=== PATIENT | male | born 1985 | race Two or more races ===

== ENCOUNTER 2024-12-20 22:18 | Inpatient (IN) ==
[2024-12-20 23:18] LABS: Basophils # (auto) 0.03 K/uL (0.00-0.20); Basophils % (auto) 0.3 %; Eosinophils # (auto) 0.03 K/uL (0.00-0.50); Eosinophils % (auto) 0.3 %; Hemoglobin 15.8 g/dl (14.0-18.0); Immature Granulocytes # (auto) 0.02 K/uL (0.01-0.20); Immature Granulocytes % (auto) 0.2 %; Lymphocytes # (auto) 2.05 K/uL (1.20-3.40); Lymphocytes % (auto) 22.2 %; Mean Corpuscular Hemoglobin 30.3 pg (25.0-34.0); Mean Corpuscular Hgb Conc 35.1 g/dL (32.0-36.0); Mean Corpuscular Volume 86.4 fL (80.0-100.0); Mean Platelet Volume 10.2 fL (9.4-12.4); Monocytes # (auto) 0.81 K/uL (0.11-0.59); Monocytes % (auto) 8.8 %; Neutrophils # (auto) 6.29 K/uL (1.40-6.50); Neutrophils % (auto) 68.2 %; Platelet Count 306 K/uL (130-400); RDW Standard Deviation 40.4 fL (36.4-46.3); Red Blood Count 5.21 M/uL (4.70-6.10); White Blood Count 9.23 K/ul (4.8-10.8)
[2024-12-20 23:36] LABS: Albumin Globulin Ratio 1.3 (0.9-2); BUN Creatinine Ratio 12.8 (10-20); Bilirubin,Total 1.5 mg/dl (0.2-1.0); Calcium 9.8 mg/dl (8.6-10.3); Creatinine Clr Calc Pharmacy 54.2 ml/min; Globulin 3.6 gm/dl (2.5-4.0); Magnesium 2.2 mg/dl (1.7-2.4); Potassium 3.1 mmol/L (3.5-5.1); Total Protein 8.4 gm/dl (6.0-8.3)
[2024-12-20 23:42] LABS: Troponin I High Sensitivity 28.5 pg/ml (0-20)
[2024-12-20] MEDS: SODIUM CHLORIDE 0.9% 1,000 ML IV ONE (23:43)
[2024-12-20 23:51] LABS: Thyroid Stimulating Hormone 1.217 uIu/ml (0.300-4.500)
[2024-12-21] MEDS: SODIUM CHLORIDE 0.9% 1,000 ML IV ONE (00:44)
--- NOTE | 2024-12-21 00:44 | Emergency Department Note ---
Impression & Plan Dehydration, Abnormal LFTs, ROSI (acute kidney injury), Substance abuse, Rhabdomyolysis ED Provider Note ED Provider Note NAME: GOLDEN FLORES AGE:39 SEX: Male : 1985 ARRIVES VIA: EMS INFORMANT: Patient, police ED PROVIDER(s): Jayda Henao DO CHIEF COMPLAINT: Agitation, abnormal behavior, altercation with PD HPI: This is a 39-year-old male brought in by police after behaving abnormally resulting in an altercation. PD reports patient walked across [facility] and slapped the police car started them and then sat down on the sidewalk. He seemed to be sweating profusely and would not respond when they asked if they could help him. After several attempts to converse with the patient they then went to place their hands on him and he became agitated and combative. It took several officers to place him in handcuffs. Patient calm and cooperative by arrival here. History obtained with use of iPad block sawyer with nursing and security staff present. Patient states he was thinking about his family and then does not know what happened. He denies any medical problems, medications, or allergies. He denies any use of smoking, alcohol, or recreational drugs. He does admit to taking something several days ago he says but he states that he does not know what it was. 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 He states these are normal and not new. He states he has no new pain or problems. PAST MEDICAL HISTORY:See Below PAST SURGICAL HISTORY:See Below FAMILY HISTORY:See Below SOCIAL HISTORY:See Below HOME MEDICATIONS:See Below ALLERGIES:See Below VITALS:See Below PHYSICAL EXAMINATION: GENERAL: alert, well appearing, well nourished, no distress, non-toxic HEAD: nc/at EYE EXAM: normal conjunctiva, PERRL and EOM's grossly intact OROPHARYNX: no exudate, no erythema, lips, buccal mucosa, and tongue normal and mucous membranes are dry NECK: supple, no nuchal rigidity, no adenopathy, non-tender, FROM LUNGS: Clear to auscultation. Normal chest wall mechanics, no w/r/r HEART: no murmurs, S1 normal and S2 normal ABDOMEN: abdomen soft, non-tender, normo-active bowel sounds, no masses, no rebound or guarding. SKIN: no rashes, petechiae, orbruising UPPER EXTREMITIES: upper extremities are grossly normal. FROM, nml pulses b/l. Handcuffs present. No obvious trauma or deformities. LOWER EXTREMITIES: No pitting edema. FROM, nml pulses b/l. Multiple superficial lacerations noted to bilateral lower extremities, no bleeding, no gaping wounds, nontender with palpation. No deformities or more concerning trauma. NEURO EXAM: Normal sensorium, cranial nerves II-XII grossly intact, normal speech, no facial droop,nogross weakness of arms, no gross weakness of legs. Gross sensation intact. No ataxia. Vital Signs: reviewed and remarkable Differential Diagnosis: Alcohol intoxication, recreational drug use, toxidrome, ROSI, dehydration, ICH, viral syndrome, medication ADR, CVA, dysrhythmia, as well as others were considered MEDICAL DECISION MAKING: This is a 39-year-old male brought in by EMS with police accompanying after an episode of agitation and bizarre behavior noted by police which resulted in an altercation with police. Patient noted to be tachycardic and mildly hypertensive on arrival however otherwise hemodynamically stable. He was calm and cooperative for myself and staff here. All interactions utilized the [employer] Guine[place] translators. Labs drawn and sent, IV established, EKG and chest ray performed at bedside and interpreted by me and patient monitored on telemetry. He was given IV fluids. Patient noted to have ROSI and abnormal LFTs. He denied abdominal pain or any prior similar episodes. A CK was added and noted to be significantly elevated. Patient was given 2 L of IV fluids and repeat labs drawn and sent by the time the CK resulted. Case discussed with the hospitalist team due to concern for rhabdomyolysis, need for continued IV fluids, and concern for initial kidney and liver injury noted. Repeat creatinine and LFTs were improving although LFTs not yet returned to normal. Patient verbalized understanding of all results as discussed via the [employer] flexo operator service. Patient's urine drug screen ultimately positive for methamphetamines. Troponin also noted to be elevated although I feel this is likely secondary to the rhabdo and ROSI. I do not suspect primary ACS, PE, or dissection. Consultation(s): 0228: Discussed with Dr. Dumont, [facility] hospitalist team, for additional evaluation and management. ER Treatment Provided: See below 2310: Patient updated on lab abnormalities via iPad flexo operator with nurse, Yamel, present. He states he is never had any kidney or liver problems before. He has previously had imaging of them and was told they were okay. He states he does not drink a lot of water, maybe some during the day as well as soda. Diagnostics Interpreted By Me: -ECG: Sinus tachycardia at 116, normal axis, normal intervals, no acute ST/T wave changes -Cardiac Monitoring: An order was placed for continuous cardiac monitoring. The monitor shows a rate of 108 with sinus tachycardia rhythm. -Laboratory studies: As stated above and show below. -Imaging studies: X-ray Chest: A single view study of the chest was reviewed and was negative for cardiomegaly, focal infiltrate, effusion, pulmonary edema, or wide mediastinum. Triage Nursing Note Reviewed Prior/Outside Records Reviewed Past Med/Surg History Problem List (Updated 12/22/24 @ 02:11 by Jayda Henao DO) Rhabdomyolysis (Acute) Substance abuse (Acute) Elevated troponin Rhabdomyolysis ROSI (acute kidney injury) (Acute) Abnormal LFTs (Acute) Dehydration (Acute) Social History Smoking Status: Never smoker Second Hand Exposure: No; Do You Dip or Chew Tobacco: No; Tobacco Cessation Education Requested by Patient: No Hx Alcohol Use: No Hx Substance Use: Yes Last Used Substance: Just Prior to Arrival Preferred Language: Guinean Communication Ability: Effective Communication Tools: IPad and Language Line Circular Sawyer Helper Circular Sawyer Helper Required: No Beliefs That Will Affect Care: None Current Living Situation: Alone Other Information That Helps Us Care for You: No Feels Safe at Home: Yes Safety Concerns: Feels Safe At This Time Assistive Devices: None Allergies Allergies Allergy/AdvReac Type Severity Reaction Status Date / Time No Known Allergies Allergy Verified 12/21/24 00:31 Home Meds Home Medications Medication Instructions Recorded Confirmed No Known Home Medications 12/21/24 12/21/24 Results & Data (ED) Vital Signs Vital Signs - 24 hr 12/21/24 02:13 12/21/24 02:48 12/21/24 03:00 Temperature 37.3 C Temperature Source Oral Pulse Rate 111 H Pulse Rate [Apical] 87 69 Respiratory Rate 20 19 Respiratory Effort / Characteristics Non-Labored Spontaneous Non-Labored Spontaneous Respiratory Pattern Regular Regular Blood Pressure [Right Arm] 146/91 H 142/97 H Blood Pressure Mean [Right Arm] 109 112 Blood Pressure Position [Right Arm] Lying Lying Pulse Oximetry 97 96 Oxygen Delivery Method Room Air Room Air Laboratory Data 12/21/24 06:52 12/21/24 06:52 Lab Results 12/20/24 12/21/24 12/21/24 Range/Units 22:51 01:30 01:36 WBC 9.23 (4.8-10.8) K/ul RBC 5.21 (4.70-6.10) M/uL Hgb 15.8 (14.0-18.0) g/dl Hct 45.0 (42.0-52.0) % MCV 86.4 (80.0-100.0) fL MCH 30.3 (25.0-34.0) pg MCHC 35.1 (32.0-36.0) g/dL RDW Std Deviation 40.4 (36.4-46.3) fL RDW Coeff of Eladio 13.0 (11.5-14.5) % Plt Count 306 (130-400) K/uL MPV 10.2 (9.4-12.4) fL Immature Gran % (Auto) 0.2 % Neut % (Auto) 68.2 % Lymph % (Auto) 22.2 % Lea % (Auto) 8.8 % Eos % (Auto) 0.3 % Baso % (Auto) 0.3 % Neut # (Auto) 6.29 (1.40-6.50) K/uL Lymph # (Auto) 2.05 (1.20-3.40) K/uL [place] # (Auto) 0.81 H (0.11-0.59) K/uL Eos # (Auto) 0.03 (0.00-0.50) K/uL Baso # (Auto) 0.03 (0.00-0.20) K/uL Immature Gran # (Auto) 0.02 (0.01-0.20) K/uL Sodium 139 140 (136-145) mmol/L Potassium 3.1 L 3.6 (3.5-5.1) mmol/L Chloride 103 109 H (98-107) mmol/L Carbon Dioxide 21 22 (21-32) mmol/L Anion Gap 15 H 9 (3-11) BUN 24 H 22 (6-23) mg/dl Creatinine 1.88 H 1.37 D (0.6-1.4) mg/dl Est Cr Clr Drug Dosing 54.2 74.4 ml/min eGFR 45.46 66.46 BUN/Creatinine Ratio 12.8 16.1 (10-20) Glucose 141 H 113 H (70-99(Fasting)) mg/dl Calcium 9.8 8.4 L (8.6-10.3) mg/dl Magnesium 2.2 (1.7-2.4) mg/dl Total Bilirubin 1.5 H 1.4 H (0.2-1.0) mg/dl AST 201 H 180 H (13-39) U/L ALT 111 H 95 H (7-52) U/L Alkaline Phosphatase 114 H 96 (34-104) U/L Total Creatine Kinase 23518 H (30-223) U/L Troponin I High Sens 28.5 H 32.8 H (0-20) pg/ml Total Protein 8.4 H 7.0 (6.0-8.3) gm/dl Albumin 4.8 3.8 (3.4-5.0) gm/dl Globulin 3.6 3.2 (2.5-4.0) gm/dl Albumin/Globulin Ratio 1.3 1.2 (0.9-2) Lipase 25 (11-82) U/L TSH 1.217 (0.300-4.500) uIu/ml Urine Color Yellow Urine Appearance Cloudy A (Clear) Urine pH 5.5 (4.5-7.5) Ur Specific [place] 1.025 (1.000-1.030) Urine Protein 2+ H (Negative) Urine Glucose (UA) Negative (Negative) Urine Ketones Trace H (Negative) Urine Blood 3+ H (Negative) Urine Nitrite Negative (Negative) Urine Bilirubin Negative (Negative) Urine Urobilinogen Negative (Negative) Ur Leukocyte Esterase Negative (Negative) Urine WBC (Auto) 0-5 (0-5) /hpf Urine RBC (Auto) 0-2 (0-2) /hpf U Hyaline Cast (Auto) >20 H (0-2) /lpf U Epithel Cells (Auto) 0-2 (0-2) /hpf Urine Bacteria (Auto) None Seen (None Seen) Urine Comment Urine Opiates Screen Neg (Neg) Ur Methadone, Qual Neg (Neg) Urine Fentanyl Screen Neg (Neg) Urine Barbiturates Neg (Neg) Ur Phencyclidine (PCP) Neg (Neg) U Amphetamin/Meth Scrn Pos H (Neg) MDMA (Ecstasy) Screen Neg (Neg) U Benzodiazepines Scrn Neg (Neg) Ur Cocaine Metabolite Neg (Neg) U Marijuana (THC) Screen Neg (Neg) Ethyl Alcohol mg/dL < 10.0 (<10.0) mg/dl Administered Medications Sodium Chloride (Nss) 1,000 mls @ 225 mls/hr IV .Q4H27M ENOC Stop: 12/24/24 02:44 Last Admin: 12/21/24 21:43 Dose: 225 mls/hr Documented By: Infusion: 12/21/24 21:40 Dose: Infused Documented By: Admin: 12/21/24 17:13 Dose: 225 mls/hr Documented By: Infusion: 12/21/24 16:47 Dose: Infused Documented By: Admin: 12/21/24 10:06 Dose: 150 mls/hr Documented By: Infusion: 12/21/24 09:26 Dose: Infused Documented By: Admin: 12/21/24 02:45 Dose: 150 mls/hr Documented By: RACHAEL Discontinued Medications Sodium Chloride (Nss) 1,000 mls @ 999 mls/hr IV .Q1H1M ONE Stop: 12/21/24 00:43 Last Infusion: 12/21/24 00:45 Dose: Infused Documented By: Admin: 12/20/24 23:43 Dose: 999 mls/hr Documented By: RACHAEL Sodium Chloride (Nss) 1,000 mls @ 999 mls/hr IV .Q1H1M ONE Stop: 12/21/24 01:36 Last Infusion: 12/21/24 02:00 Dose: Infused Documented By: Admin: 12/21/24 00:44 Dose: 999 mls/hr Documented By: RACHAEL Imaging Data Radiologist's Impression: Chest X-Ray 12/20/24 22:49 EXAM: XR chest 1V portable CLINICAL HISTORY: Agitation. TECHNIQUE: An X-ray image of the chest is obtained in PA projection. COMPARISON: No prior studies are available for comparison. FINDINGS: Pulmonary Parenchyma: Lungs are clear bilaterally. No evidence of consolidation, collapse, or focal opacities. No pulmonary nodules are identified. No evidence of pleural effusion or pleural thickening. Heart and Mediastinum: Heart size and shape are normal. No mediastinal widening or masses. No hilar or mediastinal lymphadenopathy. Bony Thorax: Bony thorax appears intact without fractures or deformities. Soft Tissues: Soft tissues overlying the chest wall are unremarkable. IMPRESSION: 1. No acute cardiopulmonary abnormalities are identified. 2. No evidence of consolidation, pneumothorax, or pleural effusion. Electronically signed by Marcelo Cardenas 12-21-2024 01:19 AM Discharge Plan Visit Data Chief Complaint: Altered Mental Status Stated Complaint: AMS ED Provider: Jayda Henao Discharge Problem: Dehydration, Abnormal LFTs, ROSI (acute kidney injury), Substance abuse, Rhabdomyolysis Patient Disposition: Admitted As Inpatient Condition: Fair Discharge Instructions Interventions: ED Discharge Assessment Last Done: 12/21/24 06:15
[2024-12-21 02:00] LABS: Albumin Globulin Ratio 1.2 (0.9-2); BUN Creatinine Ratio 16.1 (10-20); Bilirubin,Total 1.4 mg/dl (0.2-1.0); Calcium 8.4 mg/dl (8.6-10.3); Creatinine Clr Calc Pharmacy 74.4 ml/min; Globulin 3.2 gm/dl (2.5-4.0); Potassium 3.6 mmol/L (3.5-5.1)
[2024-12-21 02:03] LABS: Appearance Urine Cloudy (Clear); Bacteria Urine Automated None Seen (None Seen); Bilirubin Urine Negative (Negative); Blood Urine 3+ (Negative); Cast Urine Automated >20 /lpf (0-2); Color Urine Yellow; Epithelial Cell Urine Auto 0-2 /hpf (0-2); Glucose Urine UA Negative (Negative); Ketones Urine Trace (Negative); Leukocyte Esterase Urine Negative (Negative); Nitrite Urine Negative (Negative); Protein Urine 2+ (Negative); RBC Urine Automated 0-2 /hpf (0-2); Specific Gravity Urine 1.025 (1.000-1.030); Urobilinogen Urine Negative (Negative); WBC Urine Automated 0-5 /hpf (0-5); pH Urine 5.5 (4.5-7.5)
[2024-12-21 02:06] LABS: Troponin I High Sensitivity 32.8 pg/ml (0-20)
--- NOTE | 2024-12-21 02:32 | XRay Report ---
EXAM: XR chest 1V portable CLINICAL HISTORY: Agitation. TECHNIQUE: An X-ray image of the chest is obtained in PA projection. COMPARISON: No prior studies are available for comparison. FINDINGS: Pulmonary Parenchyma: Lungs are clear bilaterally. No evidence of consolidation, collapse, or focal opacities. No pulmonary nodules are identified. No evidence of pleural effusion or pleural thickening. Heart and Mediastinum: Heart size and shape are normal. No mediastinal widening or masses. No hilar or mediastinal lymphadenopathy. Bony Thorax: Bony thorax appears intact without fractures or deformities. Soft Tissues: Soft tissues overlying the chest wall are unremarkable. IMPRESSION: 1. No acute cardiopulmonary abnormalities are identified. 2. No evidence of consolidation, pneumothorax, or pleural effusion. Electronically signed by Marcelo Cardenas 12-21-2024 01:19 AM
[2024-12-21] MEDS: SODIUM CHLORIDE 0.9% 1,000 ML IV SCH (02:45)
[2024-12-21 02:56] LABS: Amphetamines+Metham, Urine Pos (Neg); Barbiturates, Urine Neg (Neg); Benzodiazepine, Urine Neg (Neg); Cocaine, Urine Neg (Neg); Fentanyl, Urine Neg (Neg); MDMA (Ecstacy), Urine Neg (Neg); Marijuana, Urine Neg (Neg); Methadone, Urine Neg (Neg); Opiate, Urine Neg (Neg); Phencyclidine, Urine Neg (Neg)
--- NOTE | 2024-12-21 03:12 | History & Physical Report ---
Date of Service December 21, 2024 Assessment & Plan (1) Rhabdomyolysis: (2) Elevated troponin: Plan 39-year-old male with documented PMHx presenting after episode of agitation, slurred speech, diaphoresis as witnessed by [facility] night of arrival. Reported to have walked up to an active traffic stop to police officers, unprovoked. At the time he had placed his hands down on out of the car and became agitated. ED evaluation reveals no leukocytosis, stable H&H; CMP chloride 109, glucose 113, calcium 8.4, bilirubin 1.4, AST 180, ALT 95, alkaline phosphatase 96; total CK 20,297; troponin 28.5, 32.8 on repeat; TSH 1.217; UA with 3+ blood, hyaline cast, protein; toxicology positive for amphetamine/meth; alcohol negative; CXR without acute findings; EKG sinus tachycardia at 116 bpm.; Provided with 3L NSS in ED. #Rhabdomyolysis Agitation + AMS as reported by police. Denies drug or alcohol use. Received 3L NSS in ED. - CBC without leukocytosis; CMP x 2 (initial vs repeat) Cr 1.88 -> 1.37; K 3.1 - > 3.6; bili 1.5 -> 1.4, AST 201-> 180, ALT 111-> 95, alk phos 114-> 96 - CBC, CMP, CK a.m. - Trop 28.5, 32.8 on repeat; EKG sinus tachycardia without ischemic changes - CXR WNL - UDS (+) amphetamine/meth, alcohol negative - Continue IVF -- NSS @ 150 mL/hr #Elevated troponin No current chest pain. In setting of rhabdomyolysis - Troponin 28.5, 32.8 on repeat- repeat am - EKG sinus tachycardia without ischemic changes - Likely 2/2 demand ischemia Dispo: Admit, med/tele VTE Prophylaxis: SCDs This document was dictated utilizing [employer]. Please excuse any grammatical errors that may be secondary to use of this software. Admission and Anticipated Discharge Date Admission Date: 12/21/2024 History of Present Illness Chief Complaint: Agitation, AMS Primary Care Provider: NO PCP 39-year-old male with documented PMHx presenting after episode of agitation, slurred speech, diaphoresis as witnessed by [facility] night of arrival. Reported to have walked up to an active traffic stop to police officers, unprovoked. At the time he had placed his hands down on out of the car and became agitated. An interpretation service was utilized for this meeting. When asked what happened the day [employer] the patient states "I do not know, I was remembering my family I do not know." He states at 1 point he had some SOB and then had a "strong feeling". He is denying any chest pain, just feels that he has some lower rib pain that is related to his nerves. He has no past medical history, surgical history, or family history to report. No allergies. He does admit to alcohol use "sometimes", states that he does not take drugs, but that he might of taken something a few days ago, does not member what it is. He is having some BLE tenderness in his lateral thighs, no other symptoms to report. ED evaluation reveals no leukocytosis, stable H&H; CMP chloride 109, glucose 113, calcium 8.4, bilirubin 1.4, AST 180, ALT 95, alkaline phosphatase 96; total CK 20,297; troponin 28.5, 32.8 on repeat; TSH 1.217; UA with 3+ blood, hyaline cast, protein; toxicology positive for amphetamine/meth; alcohol negative; CXR without acute findings; EKG sinus tachycardia at 116 bpm.; Provided with 3L NSS in ED. Please see Dr. Dumont's attestation for adjustments/additions to treatment plan. Allergies Allergy/AdvReac Type Severity Reaction Status Date / Time No Known Allergies Allergy Verified 12/21/24 00:31 Home Medications Medication Instructions Recorded Confirmed Type No Known Home Medications 12/21/24 12/21/24 History Past Med/Surg History Problem List (Updated 12/22/24 @ 02:11 by Jayda Henao, ) Rhabdomyolysis (Acute) Substance abuse (Acute) Elevated troponin Rhabdomyolysis ROSI (acute kidney injury) (Acute) Abnormal LFTs (Acute) Dehydration (Acute) Social History Smoking Status: Never smoker Second Hand Exposure: No; Do You Dip or Chew Tobacco: No; Tobacco Cessation Education Requested by Patient: No Hx Alcohol Use: No Hx Substance Use: Yes Last Used Substance: Just Prior to Arrival Preferred Language: Vietnamese Communication Ability: Effective Communication Tools: IPad and Language Line Nuclear Process Engineer Nuclear Process Engineer Required: No Beliefs That Will Affect Care: None Current Living Situation: Alone Other Information That Helps Us Care for You: No Feels Safe at Home: Yes Safety Concerns: Feels Safe At This Time Assistive Devices: None Review of Systems Review of Systems: All systems reviewed & are unremarkable except as noted in Subjective Physical Exam Physical Exam: General: No acute distress Skin: Warm and dry; excoriations across BLE Head: Normocephalic, atraumatic Eyes: PERRL, conjunctivae clear, sclera non-icteric ENT: External ear and ear canal without swelling; nose atraumatic; good dentition, tongue normal appearance, pharynx normal Neck: Supple, no LAD Cardio: RRR, no M/G/R, S1 and S2 normal Resp: No respiratory distress, Lungs CTA in all lobes bilaterally, no wheezes, rales, or rhonchi Abdomen: Soft, symmetric, nontender; No masses or hepatosplenomegaly; Bowel sounds normoactive MSK: No deformities; pulses palpable and equal; no edema. Neuro: Awake, alert; Sensation intact bilaterally; CN grossly intact Psych: Appropriate mood and affect; good judgement and insight. Interpretation services utilized via iPad in room. Dr. Dumont present in room at time of visit. Results & Data Results & Data Vital Signs (Past 12 Hours) Vital Signs Temp Pulse Pulse Resp BP BP Pulse Ox 12/21/24 02:48 111 H 12/21/24 02:13 37.3 C 87 20 146/91 H 97 12/21/24 01:00 84 22 131/86 100 12/21/24 00:01 92 H 22 145/86 H 97 12/20/24 23:00 118 H 24 149/102 H 96 12/20/24 22:53 116 H 12/20/24 22:14 96 12/20/24 22:14 37.4 C 120 H 16 162/105 H 94 O2 Del Method 12/21/24 02:48 12/21/24 02:13 Room Air 12/21/24 01:00 Room Air 12/21/24 00:01 Room Air 12/20/24 23:00 Room Air 12/20/24 22:53 12/20/24 22:14 Room Air 12/20/24 22:14 Room Air Laboratory Results 12/21/24 12/21/24 12/20/24 01:36 01:30 22:51 WBC 9.23 RBC 5.21 Hgb 15.8 Hct 45.0 MCV 86.4 MCH 30.3 MCHC 35.1 RDW Std Deviation 40.4 RDW Coeff of Eladio 13.0 Plt Count 306 MPV 10.2 Immature Gran % (Auto) 0.2 Neut % (Auto) 68.2 Lymph % (Auto) 22.2 [place] % (Auto) 8.8 Eos % (Auto) 0.3 Baso % (Auto) 0.3 Neut # (Auto) 6.29 Lymph # (Auto) 2.05 [place] # (Auto) 0.81 H Eos # (Auto) 0.03 Baso # (Auto) 0.03 Immature Gran # (Auto) 0.02 Sodium 140 139 Potassium 3.6 3.1 L Chloride 109 H 103 Carbon Dioxide 22 21 Anion Gap 9 15 H BUN 22 24 H Creatinine 1.37 D 1.88 H Est Cr Clr Drug Dosing 74.4 54.2 eGFR 66.46 45.46 BUN/Creatinine Ratio 16.1 12.8 Glucose 113 H 141 H Calcium 8.4 L 9.8 Magnesium 2.2 Total Bilirubin 1.4 H 1.5 H AST 180 H 201 H ALT 95 H 111 H Alkaline Phosphatase 96 114 H Total Creatine Kinase 26287 H Troponin I High Sens 32.8 H 28.5 H Total Protein 7.0 8.4 H Albumin 3.8 4.8 Globulin 3.2 3.6 Albumin/Globulin Ratio 1.2 1.3 Lipase 25 TSH 1.217 Urine Color Yellow Urine Appearance Cloudy A Urine pH 5.5 Ur Specific [place] 1.025 Urine Protein 2+ H Urine Glucose (UA) Negative Urine Ketones Trace H Urine Blood 3+ H Urine Nitrite Negative Urine Bilirubin Negative Urine Urobilinogen Negative Ur Leukocyte Esterase Negative Urine WBC (Auto) 0-5 Urine RBC (Auto) 0-2 U Hyaline Cast (Auto) >20 H U Epithel Cells (Auto) 0-2 Urine Bacteria (Auto) None Seen Urine Comment Urine Opiates Screen Neg Ur Methadone, Qual Neg Urine Fentanyl Screen Neg Urine Barbiturates Neg Ur Phencyclidine (PCP) Neg U Amphetamin/Meth Scrn Pos H MDMA (Ecstasy) Screen Neg U Benzodiazepines Scrn Neg Ur Cocaine Metabolite Neg U Marijuana (THC) Screen Neg Ethyl Alcohol mg/dL < 10.0 Diagnostic Findings Chest X-Ray 12/20/24 22:49 EXAM: XR chest 1V portable CLINICAL HISTORY: Agitation. TECHNIQUE: An X-ray image of the chest is obtained in PA projection. COMPARISON: No prior studies are available for comparison. FINDINGS: Pulmonary Parenchyma: Lungs are clear bilaterally. No evidence of consolidation, collapse, or focal opacities. No pulmonary nodules are identified. No evidence of pleural effusion or pleural thickening. Heart and Mediastinum: Heart size and shape are normal. No mediastinal widening or masses. No hilar or mediastinal lymphadenopathy. Bony Thorax: Bony thorax appears intact without fractures or deformities. Soft Tissues: Soft tissues overlying the chest wall are unremarkable. IMPRESSION: 1. No acute cardiopulmonary abnormalities are identified. 2. No evidence of consolidation, pneumothorax, or pleural effusion. Electronically signed by Marcelo Cardenas 12-21-2024 01:19 AM Medications Administered 3L NSS ECG Additional Comments: Sinus tachycardia 116 bpm, HI 130, QRS 74, QT/QTc 310/430, PRT 15/32/60 Code Status & VTE Plan Code Status Full Supervising Physician Co-Signing Physician Notes Patient seen and examined, chart reviewed, case discussed with BEVERLY Palomo and I agree with the assessment and plan as above PG Care Time/CCT Total # of Minutes Spent Total Time Spent with Patient: Total time spent is greater than 50% in coordination of care (as documented) at patient's floor/unit and/or counseling patient: Coding Level of Care Code 19355 INT INP/OBS CARE 2/55MIN Diagnoses Rhabdomyolysis M62.82 Elevated troponin R79.89
[2024-12-21 07:06] LABS: Hematocrit (blood only) 40.4 % (42.0-52.0); Hemoglobin 13.6 g/dl (14.0-18.0); Mean Corpuscular Hemoglobin 30.2 pg (25.0-34.0); Mean Corpuscular Hgb Conc 33.7 g/dL (32.0-36.0); Mean Corpuscular Volume 89.6 fL (80.0-100.0); Mean Platelet Volume 9.7 fL (9.4-12.4); Platelet Count 245 K/uL (130-400); RDW Coefficient of Variation 13.1 % (11.5-14.5); RDW Standard Deviation 43.2 fL (36.4-46.3); Red Blood Count 4.51 M/uL (4.70-6.10); White Blood Count 8.28 K/ul (4.8-10.8)
[2024-12-21 07:33] LABS: Albumin Globulin Ratio 1.4 (0.9-2); Bilirubin,Total 1.8 mg/dl (0.2-1.0); Calcium 8.5 mg/dl (8.6-10.3); Creatinine Clr Calc Pharmacy 90.9 ml/min; Globulin 2.8 gm/dl (2.5-4.0); Potassium 4.4 mmol/L (3.5-5.1); Total Protein 6.8 gm/dl (6.0-8.3)
[2024-12-21] MEDS ORDERED: POLYETHYLENE (MIRALAX) 17 GM PACK PO PRN (08:39)
[2024-12-21] MEDS ORDERED: MELATONIN 3 MG TAB PO PRN (08:39)
[2024-12-21] MEDS ORDERED: ONDANSETRON INJ 2 MG/ML 2 ML VIAL IV PRN (08:39)
--- NOTE | 2024-12-21 15:23 | Hospitalist Progress Note ---
Date of Service December 21, 2024 NO BILL Assessment & Plan (1) Rhabdomyolysis: (2) Elevated troponin: Plan 39-year-old male with documented PMHx presenting after episode of agitation, slurred speech, diaphoresis as witnessed by [facility] night of arrival. Reported to have walked up to an active traffic stop to police officers, unprovoked. At the time he had placed his hands down on out of the car and became agitated #Rhabdomyolysis Agitation + AMS as reported by police. Denies drug or alcohol use. Received 3L NSS in ED. CBC w/o leukocytosis. hgb stable CMP stable CK downtrending, repeat pending Continue IVF -- NSS @150ml/hr UDS + for amphetamine/meth, alc negative #Elevated troponin No current chest pain. In setting of rhabdomyolysis Troponin 28.5, 32.8 on repeat- repeat am EKG sinus tachycardia without ischemic changes Likely 2/2 demand ischemia Dispo: Admit, med/tele VTE Prophylaxis: SCDs Admission and Anticipated Discharge Date Admission Date: December 21, 2024 Ernesto Mata seen and examined this afternoon with Dr. Maria. Says he is feeling well. Denies any muscle aches or fatigue. Reports anxiousness but states this is his baseline Physical Exam Physical Exam: General: no acute distress; non-toxic appearing; well-nourished; cooperative HEENT: normocephalic, atraumatic; no scleral icterus; PERRLA w/ EOMs intact; vision and hearing grossly intact Neck: trachea midline Skin: warm, dry without signs of tenting; no cyanosis; no rashes, bruising, lesions, or erythema noted Lungs: no acute respiratory distress; symmetrical chest wall expansion MSK:no edema noted in the LEs b/l, nonerythematous Neuro: A&Ox3; normal mood and affect; fluent speech; no focal deficits Results & Data Results & Data Vital Signs (Past 12 Hours) Vital Signs Temp Pulse Pulse Resp BP BP Pulse Ox 12/21/24 15:09 68 12/21/24 14:45 36.4 C L 82 18 161/83 H 99 12/21/24 10:51 36.9 C 64 18 159/102 H 98 12/21/24 09:53 78 12/21/24 09:53 36.9 C 57 L 18 163/98 H 97 12/21/24 07:00 78 17 147/106 H 94 12/21/24 06:00 63 19 139/84 96 12/21/24 05:00 67 19 137/77 96 12/21/24 04:00 36.8 C 68 21 122/75 96 O2 Del Method 12/21/24 15:09 12/21/24 14:45 Room Air 12/21/24 10:51 Room Air 12/21/24 09:53 12/21/24 09:53 Room Air 12/21/24 07:00 Room Air 12/21/24 06:00 Room Air 12/21/24 05:00 Room Air 12/21/24 04:00 Room Air PG Care Time/CCT Total # of Minutes Spent Total Time Spent with Patient: Total time spent is greater than 50% in coordination of care (as documented) at patient's floor/unit and/or counseling patient: Coding Level of Care Code None Diagnoses Rhabdomyolysis M62.82 Elevated troponin R79.89
[2024-12-22 06:42] LABS: Hematocrit (blood only) 36.2 % (42.0-52.0); Hemoglobin 12.5 g/dl (14.0-18.0); Mean Corpuscular Hemoglobin 30.7 pg (25.0-34.0); Mean Corpuscular Hgb Conc 34.5 g/dL (32.0-36.0); Mean Corpuscular Volume 88.9 fL (80.0-100.0); Mean Platelet Volume 10.1 fL (9.4-12.4); Platelet Count 215 K/uL (130-400); RDW Coefficient of Variation 12.6 % (11.5-14.5); RDW Standard Deviation 41.2 fL (36.4-46.3); Red Blood Count 4.07 M/uL (4.70-6.10)
--- NOTE | 2024-12-22 06:59 | Electrocardiogram Report ---
Test Reason : Blood Pressure : */* mmHG Vent. Rate : 116 BPM Atrial Rate : 116 BPM P-R Int : 130 ms QRS Dur : 74 ms QT Int : 310 ms P-R-T Axes : 15 32 60 degrees QTcB Int : 430 ms Sinus tachycardia Otherwise normal ECG No previous ECGs available Confirmed by Vinicio Luz ([id number]) on 12/22/2024 6:59:37 AM Referred By: REFERRED SELF Confirmed By: Vinicio Luz
[2024-12-22 07:48] LABS: BUN Creatinine Ratio 13.9 (10-20); Creatinine Clr Calc Pharmacy 128.7 ml/min; Potassium 3.5 mmol/L (3.5-5.1)
[2024-12-22 14:39] LABS: BUN Creatinine Ratio 14.7 (10-20); Calcium 8.6 mg/dl (8.6-10.3); Creatinine Clr Calc Pharmacy 135.5 ml/min; Potassium 3.8 mmol/L (3.5-5.1)
--- NOTE | 2024-12-22 15:01 | Hospitalist Progress Note ---
Date of Service December 22, 2024 Assessment & Plan (1) Rhabdomyolysis: (2) Elevated troponin: Plan 39-year-old male with documented PMHx presenting after episode of agitation, slurred speech, diaphoresis as witnessed by [facility] night of arrival. Reported to have walked up to an active traffic stop to police officers, unprovoked. At the time he had placed his hands down on out of the car and became agitated #Rhabdomyolysis Agitation + AMS as reported by police. Denies drug or alcohol use. CBC w/o leukocytosis. hgb stable BMP stable CK downtrending to 14,362 Continue IVF -- NSS @150ml/hr UDS + for amphetamine/meth, alc negative AM CBC, BMP, CK #Elevated troponin No current chest pain. In setting of rhabdomyolysis Troponin 28.5, 32.8 on repeat- repeat am EKG sinus tachycardia without ischemic changes Likely 2/2 demand ischemia Dispo: Admit, med/tele VTE Prophylaxis: SCDs Admission and Anticipated Discharge Date Admission Date: December 21, 2024 Ernesto Mata seen and examined this morning with Dr. Maria. Family present. He denies any complaints today, stated he is feeling well. Physical Exam Physical Exam: General: no acute distress; non-toxic appearing; well-nourished; cooperative HEENT: normocephalic, atraumatic; no scleral icterus; PERRLA w/ EOMs intact; vision and hearing grossly intact Neck: trachea midline Skin: warm, dry without signs of tenting; no cyanosis; no rashes, bruising, lesions, or erythema noted Lungs: no acute respiratory distress; symmetrical chest wall expansion MSK: no edema noted in the LEs b/l, nonerythematous Neuro: A&Ox3; normal mood and affect; fluent speech; no focal deficits Results & Data Results & Data Vital Signs (Past 12 Hours) Vital Signs Temp Pulse Pulse Resp BP BP Pulse Ox 12/22/24 10:58 36.8 C 67 18 159/105 H 170/96 H 97 12/22/24 07:27 36.6 C 63 22 132/79 97 12/22/24 04:06 36.9 C 55 L 16 130/73 94 O2 Del Method 12/22/24 10:58 Room Air 12/22/24 07:27 Room Air 12/22/24 04:06 Room Air PG Care Time/CCT Total # of Minutes Spent Total Time Spent with Patient: Total time spent is greater than 50% in coordination of care (as documented) at patient's floor/unit and/or counseling patient: Coding Level of Care Code 55768 SUB INP/OBS CARE 2/35MIN Diagnoses Rhabdomyolysis M62.82 Elevated troponin R79.89
[2024-12-23 07:03] LABS: Hematocrit (blood only) 39.6 % (42.0-52.0); Hemoglobin 13.1 g/dl (14.0-18.0); Mean Corpuscular Hemoglobin 29.8 pg (25.0-34.0); Mean Corpuscular Hgb Conc 33.1 g/dL (32.0-36.0); Mean Platelet Volume 10.1 fL (9.4-12.4); Platelet Count 231 K/uL (130-400); RDW Coefficient of Variation 12.4 % (11.5-14.5); RDW Standard Deviation 41.1 fL (36.4-46.3); White Blood Count 5.03 K/ul (4.8-10.8)
[2024-12-23 07:20] LABS: Calcium 8.4 mg/dl (8.6-10.3); Creatinine Clr Calc Pharmacy 128.5 ml/min; Potassium 4.2 mmol/L (3.5-5.1)
[2024-12-23 11:24] VITALS: RESP 18; TEMP 98.1; O2SAT 96
--- NOTE | 2024-12-23 15:34 | Discharge Summary ---
Discharge Summary Date of Service December 23, 2024 Principal Dx & Hospital Course #1 = Principal Diagnosis (1) Rhabdomyolysis: (2) Elevated troponin: Plan 39-year-old male with documented PMHx presenting after episode of agitation, s lurred speech, diaphoresis as witnessed by [facility] night of arrival. Reported to have walked up to an active traffic stop to police officers, unprovoked. At the time he had placed his hands down on out of the car and became agitated #Rhabdomyolysis Agitation + AMS as reported by police. Denies drug or alcohol use. CBC w/o leukocytosis. hgb stable BMP stable CK downtrending to 11,411 s/p IV fluids UDS + for amphetamine/meth, alc negative #Elevated troponin No current chest pain. In setting of rhabdomyolysis Troponin 28.5, 32.8 on repeat- repeat am EKG sinus tachycardia without ischemic changes Likely 2/2 demand ischemia discussed w/ Dr. Maria. Patient discharged 12/23 Admission HPI Per Admitting Provider 39-year-old male with documented PMHx presenting after episode of agitation, slurred speech, diaphoresis as witnessed by [facility] night of arrival. Reported to have walked up to an active traffic stop to police officers, unprovoked. At the time he had placed his hands down on out of the car and became agitated. An interpretation service was utilized for this meeting. When asked what happened the day [employer] the patient states "I do not know, I was remembering my family I do not know." He states at 1 point he had some SOB and then had a "strong feeling". He is denying any chest pain, just feels that he has some lower rib pain that is related to his nerves. He has no past medical history, surgical history, or family history to report. No allergies. He does admit to alcohol use "sometimes", states that he does not take drugs, but that he might of taken something a few days ago, does not member what it is. He is having some BLE tenderness in his lateral thighs, no other symptoms to report. ED evaluation reveals no leukocytosis, stable H&H; CMP chloride 109, glucose 113, calcium 8.4, bilirubin 1.4, AST 180, ALT 95, alkaline phosphatase 96; total CK 20,297; troponin 28.5, 32.8 on repeat; TSH 1.217; UA with 3+ blood, hyaline cast, protein; toxicology positive for amphetamine/meth; alcohol negative; CXR without acute findings; EKG sinus tachycardia at 116 bpm.; Provided with 3L NSS in ED. Please see Dr. Dumont's attestation for adjustments/additions to treatment plan. Discharge Exam Constitutional WD/WN, vitals as above Eyes PERRL, conjunctivae normal, anicteric sclerae Respiratory breathing unlabored Musculoskeletal no LE edema Psychiatric A+Ox3, euthymic affect Discharge Plan Discharge Items Patient Disposition: Home - Self-Care Reason For Visit: RHABDOMYOLYSIS Discharge Diagnosis: rhabdomyloysis Condition on Discharge: Fair Activity: Resume your previous activity Non-emergency contact: Primary Care Provider Call non-emergency contact if: you have any medication questions and your symptoms worsen Follow-up/Referrals: PCP,NO [Primary Care Provider] - Diet: Regular Addtl Attending Provider Instructions: David Stevens were recently hospitalized for rhabdomyolysis an were treated with IV fluids. Please continue drinking plenty of fluids upon discharge. Pending Studies at Discharge: No Stand-Alone Forms: Loggly, Smoking Cessation Medications and DC Order Prescriptions: No Action No Known Home Medications Discharge Orders: Discharge Order (Routine); Ordered 12/23/24 Ordered By: Miryam Quiroz Admission Data Admit Date/Time: 12/21/24 03:29 Attending Provider: Shahram Maria Admit Provider: Celine Dumont Primary Care Provider: PCP,NO Other Providers: Celine Dumont Other Interventions: Discharge Summary Assessment (RN) Last Done: 12/23/24 15:43 Hospital Stay Data Consultations 12/21/24 02:36 ED Decision to Admit Stat Pending Results Patient Have Any Pending Studies at Discharge: No Discharge Instructions Given to Patient (Per Discharging Provider) David Stevens were recently hospitalized for rhabdomyolysis an were treated with IV fluids. Please continue drinking plenty of fluids upon discharge. Supervising Physician Co-Signing Physician Notes .During face to face encounter, I reviewed hosptial stay and discussed discharge plan with patient and answered any questions. I discussed plan with ALEXANDER Quiroz. I reviewed above note and agree with it except for the following: Patient was admitted with rhadomyolysis. CK downtrended from 20k to 10k Patient is asymptomatic, no signs of ROSI. Patient will be discharged home with recommendations to drink more fluid. Total Time Total Time Spent Total Time Spent (In Minutes): 40 Total Time Includes: Examination of the Patient, Discharge Planning and Medication Reconciliation Coding Level of Care Code 63627 INP/OBS DISCH >30 MIN Diagnoses Rhabdomyolysis M62.82 Elevated troponin R79.89
[2024-12-23 15:49] VITALS: BP 146/82; PULSE 55
[2024-12-24 13:38] LABS: Amphetamine Urine, Confirm 1073 ng/mL (<250); Methamphetamine, Ur Confirm 2526 ng/mL (<250)
== END 2024-12-23 16:07 | disposition home or self-care (01) | DRG 558 ==
LOC: SUATTDRO → ED 22:18 → SUATTDRO 12-21 03:29 → 2S 12-21 03:29